=== PATIENT | male | born 1965 ===

== ENCOUNTER 2024-10-13 09:39 | Emergency (ER) | payer OTHER ==
[~2024-10-13] VITALS: Ht 170.2 cm; Wt 81.7 kg
[2024-10-13] MEDS ORDERED: Robaxin750 MG PO (09:50)
== END 2024-10-13 10:12 | disposition home or self-care (01) ==
LOC: ER 09:39
DX: M54.12 Radiculopathy, cervical region (principal); I10 Essential (primary) hypertension; Z59.01 Sheltered homelessness
CPT/HCPCS: 99283; A9270